=== PATIENT | male | born 1995 | race Caucasian/White ===

== ENCOUNTER 2018-01-06 17:07 | Emergency (ER) | payer OTHER ==
[2018-01-06] MEDS ORDERED: FENTANYL CITRATE INJ/PF 100 MCG/2 ML AMPUL IV ONE (19:04)
[2018-01-06] MEDS ORDERED: METOCLOPRAMIDE HCL INJ/PF 10 MG/2 ML SDV IV ONE (19:06)
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
[2018-01-06 19:41] LABS: ABSOLUTE LYMPHOCYTES (AUTO) 1.3 10^3/uL (0.5-4.7); ABSOLUTE MONOCYTES (AUTO) 0.7 10^3/uL (0.1-1.4); ABSOLUTE NEUT (AUTO) 5.2 10^3/uL (1.7-8.2); BASOPHILS % (AUTO) 0.4 % (0-2); EOSINOPHILS % (AUTO) 0.5 % (0-6); HEMATOCRIT 42.9 % (37.9-51.0); HEMOGLOBIN 14.9 g/dL (13.5-17.0); LYMPHOCYTES % (AUTO) 17.4 % (13-45); MEAN CORPUSCULAR HEMOGLOBIN 30.6 pg (27.0-33.4); MEAN CORPUSCULAR HGB CONC 34.8 g/dL (32.0-36.0); MEAN CORPUSCULAR VOLUME 88 fl (80-97); MONOCYTES % (AUTO) 9.9 % (3-13); PLATELET COUNT 216 10^3/uL (150-450); RED BLOOD COUNT 4.87 10^6/uL (4.35-5.55); RED CELL DISTRIBUTION WIDTH 13.1 % (11.5-14.0); SEGMENTED NEUTROPHILS % (AUTO) 71.8 % (42-78); TOTAL CELLS COUNTED % (AUTO) 100 %; WHITE BLOOD COUNT 7.3 10^3/uL (4.0-10.5)
[2018-01-06 19:49] LABS: APPEARANCE,URINE CLEAR; BILIRUBIN,URINE NEGATIVE (NEGATIVE); COLOR,URINE STRAW; GLUCOSE, URINE NEGATIVE (NEGATIVE); KETONES,URINE NEGATIVE (NEGATIVE); LEUKOCYTE ESTERASE,URINE NEGATIVE (NEGATIVE); NITRITE,URINE NEGATIVE (NEGATIVE); PROTEIN,URINE 100 mg/dL (NEGATIVE); URINE SPECIFIC GRAVITY 1.005; UROBILINOGEN,URINE NEGATIVE mg/dL (<2.0)
[2018-01-06 20:00] LABS: ALANINE AMINOTRANSFERASE 24 U/L (21-72); ALBUMIN 4.4 g/dL (3.5-5.0); ALKALINE PHOSPHATASE 67 U/L (38-126); ANION GAP 15 (5-19); ASPARTATE AMINO TRANSFERASE 27 U/L (17-59); BILIRUBIN,DIRECT 0.3 mg/dL (0.0-0.4); BILIRUBIN,TOTAL 0.8 mg/dL (0.2-1.3); BLOOD UREA NITROGEN 19 mg/dL (7-20); CALCIUM 9.1 mg/dL (8.4-10.2); CARBON DIOXIDE 26 mmol/L (22-30); CHLORIDE 106 mmol/L (98-107); GLUCOSE 99 mg/dL (75-110); LIPASE 82.1 U/L (23-300); POTASSIUM 3.6 mmol/L (3.6-5.0); SODIUM 146.5 mmol/L (137-145); TOTAL PROTEIN 7.9 g/dL (6.3-8.2)
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
[2018-01-06 22:22] LABS: CREATINE KINASE 237 U/L (55-170)
[2018-01-06] MEDS: FENTANYL CITRATE INJ/PF 100 MCG/2 ML AMPUL IV PRN (22:34)
[2018-01-07] MEDS ORDERED: METOCLOPRAMIDE HCL INJ/PF 10 MG/2 ML SDV IV ONE (00:02)
[2018-01-07] MEDS: FENTANYL CITRATE INJ/PF 100 MCG/2 ML AMPUL IV PRN (00:07)
[2018-01-07 00:19] VITALS: BP 120/60
== END 2018-01-07 00:23 | disposition short-term general hospital (02) ==
LOC: EDBD 17:07 → ER 17:07
DX: N17.9 Acute kidney failure, unspecified (principal); S39.91XA Unspecified injury of abdomen, initial encounter; S30.811A Abrasion of abdominal wall, initial encounter; R11.2 Nausea with vomiting, unspecified; M79.1 Myalgia; R10.84 Generalized abdominal pain; V29.40XA Motorcycle driver injured in collision with unspecified motor vehicles in traffic accident, initial encounter
CPT/HCPCS: 96376; 99285; 96374; 96375; 36415; 82550; 83690; 85025; 80053; 81001; 74176; J3010 ×2; J2765 ×2

== ENCOUNTER 2018-02-09 21:33 | Emergency (ER) | payer OTHER ==
[2018-02-09] MEDS ORDERED: NORMAL SALINE 1000 ML 1,000 ML IV ONE (21:44)
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
[2018-02-09] MEDS ORDERED: ONDANSETRON HCL INJ/PF 4 MG/2 ML SDV IV ONE (21:56)
[2018-02-09] MEDS ORDERED: FENTANYL CITRATE INJ/PF 100 MCG/2 ML AMPUL IV ONE ×2 (21:56→23:24)
[2018-02-09 22:23] LABS: ABSOLUTE EOSINOPHILS # (AUTO) 0.2 10^3/uL (0.0-0.6); ABSOLUTE LYMPHOCYTES (AUTO) 1.9 10^3/uL (0.5-4.7); ABSOLUTE MONOCYTES (AUTO) 0.6 10^3/uL (0.1-1.4); ABSOLUTE NEUT (AUTO) 6.6 10^3/uL (1.7-8.2); BASOPHILS % (AUTO) 0.5 % (0-2); EOSINOPHILS % (AUTO) 2.1 % (0-6); HEMATOCRIT 39.3 % (37.9-51.0); LYMPHOCYTES % (AUTO) 20.1 % (13-45); MEAN CORPUSCULAR HEMOGLOBIN 30.5 pg (27.0-33.4); MEAN CORPUSCULAR HGB CONC 35.6 g/dL (32.0-36.0); MEAN CORPUSCULAR VOLUME 86 fl (80-97); MONOCYTES % (AUTO) 6.3 % (3-13); PLATELET COUNT 210 10^3/uL (150-450); RED BLOOD COUNT 4.59 10^6/uL (4.35-5.55); RED CELL DISTRIBUTION WIDTH 12.8 % (11.5-14.0); TOTAL CELLS COUNTED % (AUTO) 100 %; WHITE BLOOD COUNT 9.3 10^3/uL (4.0-10.5)
[2018-02-09 22:27] LABS: ALANINE AMINOTRANSFERASE 70 U/L (21-72); ALBUMIN 4.8 g/dL (3.5-5.0); ALKALINE PHOSPHATASE 64 U/L (38-126); ANION GAP 17 (5-19); ASPARTATE AMINO TRANSFERASE 41 U/L (17-59); BILIRUBIN,DIRECT 0.3 mg/dL (0.0-0.4); BILIRUBIN,TOTAL 0.5 mg/dL (0.2-1.3); BLOOD UREA NITROGEN 19 mg/dL (7-20); CALCIUM 9.9 mg/dL (8.4-10.2); CARBON DIOXIDE 23 mmol/L (22-30); CHLORIDE 104 mmol/L (98-107); GLUCOSE 115 mg/dL (75-110); POTASSIUM 3.9 mmol/L (3.6-5.0); SODIUM 143.7 mmol/L (137-145); TOTAL PROTEIN 8.1 g/dL (6.3-8.2)
[2018-02-09 22:28] LABS: ALCOHOL < 10 mg/dL (NONE DETECTED)
[2018-02-09 22:40] LABS: INTERNATIONAL RATION (INR) 0.82; PARTIAL THROMBOPLASTIN TIME 26.8 SEC (23.5-35.8); PROTHROMBIN TIME 11.8 SEC (11.4-15.4)
--- NOTE | 2018-02-09 22:42 | RADIOLOGY REPORT (SQ) ---
Clinical History : [facility] , Exam : PA and lateral views of the chest 02/09/2018 9:51 PM CDT Comparisons : none Findings : There are no displaced rib fractures or evidence of pneumothorax. The lungs are clear without focal consolidation or pleural effusion. The heart is normal in size. The mediastinal contours are normal in appearance. The thoracic spine is age appropriate. The shoulders are unremarkable. Limited evaluation of the upper abdomen demonstrates no gross abnormalities. Impression: No acute cardiopulmonary disease
--- NOTE | 2018-02-09 22:43 | RADIOLOGY REPORT (SQ) ---
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 FINDINGS: There is no acute fracture or dislocation. There is no focal soft tissue swelling or joint effusion. The bony alignment is normal. Limited evaluation of the distal tibia/ fibula demonstrate no gross abnormalities. The talus, calcaneus, tarsal, and metatarsal bones are grossly normal in appearance. The intertarsal, tarsometatarsal, and visualized metatarsophalangeal joints are grossly normal in appearance. IMPRESSION: No acute fracture or dislocation.
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
--- NOTE | 2018-02-09 22:45 | RADIOLOGY REPORT (SQ) ---
EXAM DESCRIPTION: 3 views of the right hand CLINICAL HISTORY: 22 years, Male, HALFWAY, pain COMPARISON: None. FINDINGS: There is no acute fracture or dislocation. The bony alignment is normal. There is an area of soft tissue swelling and laceration overlying the medial aspect of the carpus. There are multiple foci of soft tissue air as well as a 3 mm radiodense foreign body. The distal radius/ ulna, carpal, metacarpal, and phalangeal bones are normal in appearance. The intercarpal, carpometacarpal, metacarpophalangeal, and interphalangeal joints are normal in appearance. IMPRESSION: 1. No acute fracture or dislocation. 2. Soft tissue laceration with suspected retained opaque foreign body. Recommend correlation with exam.
--- NOTE | 2018-02-09 22:46 | RADIOLOGY REPORT (SQ) ---
EXAM DESCRIPTION: 3 views of the right wrist CLINICAL HISTORY: 22 years, Male, LONG TERM, pain COMPARISON: None. FINDINGS: There is no acute fracture or dislocation. The bony alignment is normal. There is soft tissue swelling and laceration overlying the medial aspect of the carpus. There is a 3 mm radiodense body in the region of the laceration. The distal radius/ ulna, carpal, metacarpal, and phalangeal bones are normal in appearance. IMPRESSION: 1. No acute fracture or dislocation. 2. Soft tissue laceration with retained opaque foreign body.
[2018-02-09] MEDS ORDERED: LIDOCAINE 1% INJ-PF (10 MG/ML) 30 ML SDV INJ ONE (23:07)
[2018-02-09] MEDS ORDERED: KETOROLAC TROMETHAMINE INJ/PF 30 MG/1 ML SDV IV ONE (23:24)
[2018-02-09] MEDS ORDERED: CEFAZOLIN 1 GM/D5W RTU 1 GM/50 ML RTUPB IV ONE (23:30)
[2018-02-09 23:32] LABS: APPEARANCE,URINE CLEAR; BILIRUBIN,URINE NEGATIVE (NEGATIVE); COLOR,URINE YELLOW; GLUCOSE, URINE NEGATIVE (NEGATIVE); KETONES,URINE NEGATIVE (NEGATIVE); LEUKOCYTE ESTERASE,URINE NEGATIVE (NEGATIVE); NITRITE,URINE NEGATIVE (NEGATIVE); PROTEIN,URINE NEGATIVE (NEGATIVE); URINE SPECIFIC GRAVITY 1.015; UROBILINOGEN,URINE NEGATIVE mg/dL (<2.0)
[2018-02-10 02:15] VITALS: BP 109/58
== END 2018-02-10 01:20 | disposition home or self-care (01) ==
LOC: ER 21:33
DX: S91.322A Laceration with foreign body, left foot, initial encounter (principal); S20.211A Contusion of right front wall of thorax, initial encounter; S60.511A Abrasion of right hand, initial encounter; S60.811A Abrasion of right wrist, initial encounter; R07.89 Other chest pain; M79.601 Pain in right arm; M79.671 Pain in right foot; V29.40XA Motorcycle driver injured in collision with unspecified motor vehicles in traffic accident, initial encounter; R00.0 Tachycardia, unspecified
CPT/HCPCS: 96376; 99285; 96361; 96375; 96365; 36415; 80307; 85025; 85610; 85730; 80053; 81001; 73610; 71046; 73630; 73130; 73110; 12002; J0690; J3010; J3490; J1885; J2405; J7030